=== PATIENT | male | born 1965 | race Caucasian/White ===

== ENCOUNTER 2018-12-23 13:51 | Emergency (ER) | payer BC ==
[~2018-12-23] VITALS: Ht 167.6 cm; Wt 70.3 kg
[2018-12-23 13:54] VITALS: BP_SYST 151
--- NOTE | 2018-12-23 14:21 | NUR ---
Patient to ER [place] [address] [facility] [place] [facility] for evaluation. Side rails up. Report given to Maryana DE DIOS.
--- NOTE | 2018-12-23 14:23 | NUR ---
Pt brought by self,A&Ox4, pt presents to ER with severe lower back pain radiating to R leg ,pt tripped and fell with landing on root ball, pt states he was seen at [facility] but was taking too long to see a doctor, pt respirations even and unlabored, no open wounds noted.
--- NOTE | 2018-12-23 14:53 | NUR ---
Shelly Robb [employer] MACHINE OPERATOR at bedside examining patient
[2018-12-23] MEDS: KETOROLAC TROMETHAMINE 60 MG/2 ML VIAL IM ONE (15:43)
--- NOTE | 2018-12-23 16:00 | NUR ---
Received fax from [facility] of requested medical records. Reviewed.
[2018-12-23 16:27] VITALS: BP_SYST 142
--- NOTE | 2018-12-23 16:28 | NUR ---
Patient given written and verbal discharge instructions and verbalizes understanding. ER MD discussed with patient the results and treatment provided. Patient in stable condition. ID arm band removed. Rx of Motrin,Flexeril,Tramadol,Lidocaine patch given. Patient educated on pain management and to follow up with PMD. Pain Scale 2/10 tolerable for pt. Opportunity for questions provided and answered. Medication side effect fact sheet provided.
[2018-12-23] MEDS ORDERED: DEXAMETHASONE SOD PHOSPHATE 10 MG/ML VIAL IM ONE (17:00)
== END 2018-12-23 16:27 | disposition home or self-care (01) ==
LOC: SED 13:51
DX: S39.012A Strain of muscle, fascia and tendon of lower back, initial encounter (principal); R03.0 Elevated blood-pressure reading, without diagnosis of hypertension; K21.9 Gastro-esophageal reflux disease without esophagitis; W01.0XXA Fall on same level from slipping, tripping and stumbling without subsequent striking against object, initial encounter; Y93.89 Activity, other specified; Y92.89 Other specified places as the place of occurrence of the external cause; Y99.8 Other external cause status
CPT/HCPCS: 96372; 99283; J1885

== ENCOUNTER 2019-05-26 07:11 | Emergency (ER) | payer SELFPAY ==
[~2019-05-26] VITALS: Ht 167.6 cm; Wt 72.6 kg
--- NOTE | 2019-05-26 07:13 | NUR ---
Patient to ER bed 1 to gown for evaluation. Side rails up. Triaged at bedside.
--- NOTE | 2019-05-26 07:15 | NUR ---
PATIENT CAME IN COMPLAINING OF NON RADIATING CHEST PAIN THAT STARTED ABOUT 0400 THIS MORNING WHEN HE WOKE UP. PATIENT COMPLAINING OF 4/10 PAIN. PATIENT UNABLE TO DESCRIBE IT. PATIENT STATES PAIN CONSTANT. PATIENT STATES HE HASNT TAKEN ANYTHING FOR PAIN. PATIENT COMPLAINING OF SOB. PATIENT DENIES NAUSEA AND VOMITING. PATIENT IS ALERT AND ORIENTED X4.
[2019-05-26 07:18] VITALS: BP_SYST 159
[2019-05-26] MEDS ORDERED: NACL 0.9% 1,000 ML IV ONE (07:19)
--- NOTE | 2019-05-26 07:25 | NUR ---
# 18 gauge angiocath placed to left AC. Use of asceptic technique. Opsite placed over site. Blood return noted. Blood for lab drawn from site. Flushed with 10 cc of normal saline. No evidence of infiltration noted. Patient tolerated well.
[2019-05-26] MEDS ORDERED: ASPIRIN 81 MG TAB.CHEW PO ONE (07:30)
[2019-05-26 07:37] LABS: BASOPHILS # (AUTO) 0.1 K/uL (0.0-0.2); BASOPHILS % (AUTO) 0.7 % (0.0-2.0); EOSINOPHILS # (AUTO) 0.2 K/uL (0.0-0.4); EOSINOPHILS % (AUTO) 2.3 % (0.0-4.0); HEMATOCRIT 43.5 % (36-54); HEMOGLOBIN 14.8 g/dL (14.0-18.0); LYMPHOCYTES # (AUTO) 1.6 K/uL (1.0-5.5); LYMPHOCYTES % (AUTO) 18.8 % (20.5-51.5); MEAN CORPUSCULAR HEMOGLOBIN 29 pg (27-31); MEAN CORPUSCULAR HGB CONC 34 % (32-36); MEAN CORPUSCULAR VOLUME 84 fL (79.0-98.0); MONOCYTES # (AUTO) 0.5 K/uL (0.0-1.0); MONOCYTES % (AUTO) 6.2 % (1.7-9.3); NEUTROPHILS # (AUTO) 5.9 K/uL (1.8-7.7); PLATELET COUNT (AUTO) 199 K/uL (130-430); RED BLOOD CELL COUNT(AUTO) 5.16 MIL/uL (4.2-6.2); RED CELL DISTRIBUTION WIDTH 14.2 % (9.0-15.0); WHITE BLOOD COUNT (AUTO) 8.3 K/uL (4.8-10.8)
--- NOTE | 2019-05-26 07:50 | NUR ---
PATIENT GETTING X RAY IN BED.
[2019-05-26 07:53] LABS: ANION GAP 11 (5-15); CHLORIDE 106 mmol/L (98-107); CREATININE 1.09 mg/dL (0.55-1.30); GLUCOSE 105 mg/dL (70-99); SODIUM SERUM 142 mmol/L (136-145); UREA NITROGEN, BLOOD 20 mg/dL (8-21)
[2019-05-26 08:02] LABS: ALANINE AMINOTRANSFERASE 44 U/L (12-78); ALBUMIN 3.3 g/dL (3.4-4.8); ASPARTATE AMINOTRANSFERASE 18 U/L (10-37); TOTAL BILIRUBIN 0.4 mg/dL (0.0-1.0)
[2019-05-26 08:03] LABS: GFR AFRICAN AMERICAN 92 mL/min (>90)
--- NOTE | 2019-05-26 08:07 | NUR ---
ER Dr. Bowman at bedside examining patient.
[2019-05-26 08:09] LABS: CALCIUM 8.6 mg/dL (8.4-11.0)
--- NOTE | 2019-05-26 08:25 | NUR ---
Patient given written and verbal discharge instructions and verbalizes understanding. ER MD discussed with patient the results and treatment provided. Patient in stable condition. ID arm band removed. IV catheter removed intact and dressing applied, no active bleeding. No Rx given. Patient educated on pain management and to follow up with PMD. Pain Scale 1/10 tolerable. Opportunity for questions provided and answered. Medication side effect fact sheet provided.
[2019-05-26 08:26] VITALS: BP_SYST 143
== END 2019-05-26 08:26 | disposition home or self-care (01) ==
LOC: SED 07:11
DX: R07.89 Other chest pain (principal); I10 Essential (primary) hypertension; K21.9 Gastro-esophageal reflux disease without esophagitis
CPT/HCPCS: 36415; 71045; 80053; 84484; 85025; 99284; J7030

== ENCOUNTER 2024-02-15 01:45 | Emergency (ER) | payer OTHER ==
[~2024-02-15] VITALS: Ht 167.6 cm; Wt 74.8 kg
[2024-02-15 01:53] VITALS: BP_SYST 172; PULSE 107; RESP 20; TEMP 96.5; O2SAT 99
[2024-02-15] MEDS ORDERED: iohexoL 350 mgI/mL, 100 ML INFUS..BTL IV ONE (02:24)
[2024-02-15 02:49] LABS: BASOPHILS # (AUTO) 0.1 K/uL (0.0-0.2); BASOPHILS % (AUTO) 2.1 % (0.0-2.0); EOSINOPHILS # (AUTO) 0.2 K/uL (0.0-0.4); EOSINOPHILS % (AUTO) 3.5 % (0.0-4.0); HEMATOCRIT 52.4 % (36-54); HEMOGLOBIN 17.4 g/dL (14.0-18.0); LYMPHOCYTES # (AUTO) 0.8 K/uL (1.0-5.5); LYMPHOCYTES % (AUTO) 11.8 % (20.5-51.5); MEAN CORPUSCULAR HEMOGLOBIN 28 pg (27-31); MEAN CORPUSCULAR HGB CONC 33 % (32-36); MEAN CORPUSCULAR VOLUME 84 fL (79.0-98.0); MONOCYTES # (AUTO) 0.4 K/uL (0.0-1.0); MONOCYTES % (AUTO) 6.7 % (1.7-9.3); NEUTROPHILS % (AUTO) 75.9 % (40.0-70.0); PLATELET COUNT (AUTO) 197 K/uL (130-430); RED BLOOD CELL COUNT(AUTO) 6.22 MIL/uL (4.2-6.2); RED CELL DISTRIBUTION WIDTH 14.5 % (9.0-15.0); WHITE BLOOD COUNT (AUTO) 6.5 K/uL (4.8-10.8)
[2024-02-15 02:57] LABS: PROTHROMBIN TIME 10.6 SECS (9.5-12.5)
[2024-02-15 03:05] VITALS: TEMP 97
[2024-02-15 03:06] LABS: ALANINE AMINOTRANSFERASE 46 U/L (12-78); ALBUMIN 3.5 g/dL (3.4-4.8); ANION GAP 12 (5-15); ASPARTATE AMINOTRANSFERASE 20 U/L (10-37); CALCIUM 9.1 mg/dL (8.4-11.0); CARBON DIOXIDE 24 mmol/L (23-29); CHLORIDE 103 mmol/L (98-107); CREATININE 1.21 mg/dL (0.55-1.30); GFR AFRICAN AMERICAN 80 mL/min (>90); GLUCOSE 112 mg/dL (74-106); POTASSIUM 3.9 mmol/L (3.5-5.1); SODIUM SERUM 139 mmol/L (136-145); TOTAL BILIRUBIN 0.4 mg/dL (0.0-1.0); TOTAL PROTEIN, SERUM 7.4 g/dL (6.4-8.3); UREA NITROGEN, BLOOD 21 mg/dL (8-21)
[2024-02-15 03:08] LABS: BILIRUBIN,DIRECT 0.1 mg/dL (0.0-0.3)
[2024-02-15 03:12] LABS: GFR NON AFRICAN-AMERICAN 66 mL/min (>90)
[2024-02-15] MEDS: MORPHINE 4 MG INJ. 4 MG/ML VIAL IVP ONE (04:00)
[2024-02-15] MEDS: KETOROLAC TROMETHAMINE 15 MG VIAL IVP ONE (05:34)
[2024-02-15] MEDS ORDERED: ACETAMINOPHEN 500 MG TABLET ONE (05:52)
[2024-02-15] MEDS: ACETAMINOPHEN 500 MG TABLET PO ONE (05:55)
[2024-02-15 06:36] VITALS: BP_SYST 125; PULSE 73; RESP 18; O2SAT 98
== END 2024-02-15 06:40 | disposition left against medical advice (07) ==
LOC: SED 01:45
DX: M79.605 Pain in left leg (principal); M79.602 Pain in left arm; R20.0 Anesthesia of skin; K21.9 Gastro-esophageal reflux disease without esophagitis
CPT/HCPCS: 99285; 70450; 96374; 71045; 96375; 80076; 80048; 83880; 85025; 85610; 85730; 84484; 36415; 93005; 71275; 74175; 70496; 70498; 72191; 82948; Q9967; J1885; J2270

== ENCOUNTER 2024-03-07 13:47 | Emergency (ER) | payer OTHER ==
[~2024-03-07] VITALS: Ht 167.6 cm; Wt 113.4 kg
[2024-03-07 13:52] VITALS: BP_SYST 138; PULSE 83; RESP 24; TEMP 98.5; O2SAT 98
[2024-03-07] MEDS ORDERED: iohexoL 350 mgI/mL, 100 ML INFUS..BTL IV ONE (13:57)
[2024-03-07] MEDS: NACL 0.9% 1,000 ML IV ONE (14:13)
[2024-03-07] MEDS: MORPHINE 4 MG INJ. 4 MG/ML VIAL IVP ONE (14:14)
[2024-03-07 14:25] LABS: BASOPHILS # (AUTO) 0.1 K/uL (0.0-0.2); BASOPHILS % (AUTO) 0.7 % (0.0-2.0); EOSINOPHILS # (AUTO) 0.1 K/uL (0.0-0.4); EOSINOPHILS % (AUTO) 1.3 % (0.0-4.0); HEMATOCRIT 51.9 % (36-54); HEMOGLOBIN 17.8 g/dL (14.0-18.0); LYMPHOCYTES # (AUTO) 1.8 K/uL (1.0-5.5); MEAN CORPUSCULAR HEMOGLOBIN 29 pg (27-31); MEAN CORPUSCULAR HGB CONC 34 % (32-36); MEAN CORPUSCULAR VOLUME 85 fL (79.0-98.0); MONOCYTES # (AUTO) 0.5 K/uL (0.0-1.0); MONOCYTES % (AUTO) 6.1 % (1.7-9.3); NEUTROPHILS # (AUTO) 5.5 K/uL (1.8-7.7); NEUTROPHILS % (AUTO) 68.9 % (40.0-70.0); PLATELET COUNT (AUTO) 198 K/uL (130-430); RED BLOOD CELL COUNT(AUTO) 6.12 MIL/uL (4.2-6.2); RED CELL DISTRIBUTION WIDTH 14.4 % (9.0-15.0); WHITE BLOOD COUNT (AUTO) 7.9 K/uL (4.8-10.8)
[2024-03-07] MEDS: MAG HYDROX/AL HYDROX/SIMETH 30 ML, DICYCLOMINE HCL 20 MG, LIDOCAINE VISCOUS 2% 15ML (PO... PO ONE (15:38)
[2024-03-07 15:44] LABS: ALANINE AMINOTRANSFERASE 35 U/L (12-78); ALBUMIN 2.8 g/dL (3.4-4.8); ANION GAP 4 (5-15); ASPARTATE AMINOTRANSFERASE 20 U/L (10-37); CALCIUM 7.6 mg/dL (8.4-11.0); CARBON DIOXIDE 27 mmol/L (23-29); CHLORIDE 106 mmol/L (98-107); CREATININE 1.15 mg/dL (0.55-1.30); GFR AFRICAN AMERICAN 85 mL/min (>90); GLUCOSE 107 mg/dL (74-106); POTASSIUM 3.7 mmol/L (3.5-5.1); SODIUM SERUM 137 mmol/L (136-145); TOTAL BILIRUBIN 0.4 mg/dL (0.0-1.0); TOTAL PROTEIN, SERUM 6.2 g/dL (6.4-8.3); UREA NITROGEN, BLOOD 23 mg/dL (8-21)
[2024-03-07 15:47] LABS: BILIRUBIN,DIRECT 0.1 mg/dL (0.0-0.3); LIPASE 29 U/L (16-77)
[2024-03-07 15:50] LABS: GFR NON AFRICAN-AMERICAN 70 mL/min (>90)
[2024-03-07] MEDS ORDERED: TRAM50TA2 PO (16:45)
[2024-03-07] MEDS ORDERED: OMEP40CA20 PO (16:45)
[2024-03-07] MEDS: KETOROLAC TROMETHAMINE 30 MG VIAL IVP ONE (16:51)
[2024-03-07 17:35] VITALS: BP_SYST 138; PULSE 81; RESP 18; TEMP 98; O2SAT 98
== END 2024-03-07 15:20 | disposition home or self-care (01) ==
LOC: SED 13:47
DX: K29.70 Gastritis, unspecified, without bleeding (principal); R10.13 Epigastric pain; R06.02 Shortness of breath; K21.9 Gastro-esophageal reflux disease without esophagitis; Z79.899 Other long term (current) drug therapy
CPT/HCPCS: 99285; 74175; 96374; 71045; 96361; 96375; 80076; 80048; 83690; 85025; 84484; 36415; 93005; 72191; 82948; Q9967; J1885; J2270; J7030; J2001

== ENCOUNTER 2024-05-18 07:23 | Emergency (ER) | payer OTHER ==
[~2024-05-18] VITALS: Ht 167.6 cm; Wt 90.7 kg
[~2024-05-18 07:23] MED LIST: OMEP40CA20 PO; TRAM50TA2 PO
[2024-05-18 07:30] VITALS: BP_SYST 152; PULSE 92; RESP 22; TEMP 98.5; O2SAT 97
[2024-05-18 08:21] LABS: BASOPHILS % (AUTO) 0.3 % (0.0-2.0); EOSINOPHILS # (AUTO) 0.2 K/uL (0.0-0.4); HEMOGLOBIN 17.3 g/dL (14.0-18.0); LYMPHOCYTES # (AUTO) 0.7 K/uL (1.0-5.5); MEAN CORPUSCULAR HEMOGLOBIN 29 pg (27-31); MONOCYTES # (AUTO) 0.6 K/uL (0.0-1.0); WHITE BLOOD COUNT (AUTO) 9.5 K/uL (4.8-10.8)
[2024-05-18 08:23] LABS: EOSINOPHILS % (AUTO) 1.7 % (0.0-4.0); HEMATOCRIT 51.8 % (36-54); LYMPHOCYTES % (AUTO) 7.6 % (20.5-51.5); MEAN CORPUSCULAR HGB CONC 33 % (32-36); MEAN CORPUSCULAR VOLUME 85 fL (79.0-98.0); MONOCYTES % (AUTO) 6.3 % (1.7-9.3); NEUTROPHILS % (AUTO) 84.1 % (40.0-70.0); PLATELET COUNT (AUTO) 192 K/uL (130-430); RED BLOOD CELL COUNT(AUTO) 6.07 MIL/uL (4.2-6.2); RED CELL DISTRIBUTION WIDTH 14.9 % (9.0-15.0)
[2024-05-18 08:36] LABS: PROTHROMBIN TIME 10.5 SECS (9.5-12.5)
[2024-05-18 09:01] LABS: ALANINE AMINOTRANSFERASE 46 U/L (12-78); ALBUMIN 3.6 g/dL (3.4-4.8); ANION GAP 11 (5-15); ASPARTATE AMINOTRANSFERASE 25 U/L (10-37); BILIRUBIN,DIRECT 0.1 mg/dL (0.0-0.3); CALCIUM 8.5 mg/dL (8.4-11.0); CARBON DIOXIDE 24 mmol/L (23-29); CHLORIDE 102 mmol/L (98-107); CREATINE KINASE, TOTAL 175 U/L (39-308); CREATININE 1.16 mg/dL (0.55-1.30); FREE T4 (FREE THYROXINE) 0.8 ng/dL (0.6-1.6); GFR AFRICAN AMERICAN 84 mL/min (>90); GFR NON AFRICAN-AMERICAN 69 mL/min (>90); GLUCOSE 96 mg/dL (74-106); POTASSIUM 4.1 mmol/L (3.5-5.1); SODIUM SERUM 137 mmol/L (136-145); THYROID STIMULATING HORMONE 1.13 uIu/mL (0.34-4.82); TOTAL BILIRUBIN 0.5 mg/dL (0.0-1.0); TOTAL PROTEIN, SERUM 7.4 g/dL (6.4-8.3); UREA NITROGEN, BLOOD 18 mg/dL (8-21)
[2024-05-18 09:01] LABS: BILIRUBIN,URINE NEGATIVE (NEGATIVE); CLARITY/URINE CLEAR (CLEAR); COLOR,URINE YELLOW (YELLOW); GLUCOSE,URINE NEGATIVE (NEGATIVE); KETONES,URINE NEGATIVE (NEGATIVE); LEUKOCYTE ESTERASE ,URINE NEGATIVE (NEGATIVE); NITRITE, URINE NEGATIVE (NEGATIVE); PROTEIN URINE NEGATIVE (NEGATIVE); UROBILINOGEN,URINE 0.2 (0.2-1.0)
[2024-05-18 09:03] LABS: BLOOD, URINE TRACE (NEGATIVE)
[2024-05-18 09:15] LABS: BACTERIA,URINE None Seen /HPF (None Seen); CALCIUM OXALATE CRYSTALS,UR None Seen /HPF (None Seen); CALCIUM PHOSPHATE CRYSTALS,UR None Seen /HPF (None Seen); COARSE GRANULAR CASTS,URINE None Seen /LPF (None Seen); FINE GRANULAR CASTS,URINE None Seen /LPF (None Seen); HYALINE CASTS, URINE None Seen /LPF (None Seen); MUCUS,URINE None Seen /LPF (None Seen); OTHER CASTS, URINE None Seen /LPF (None Seen); OTHER CRYSTALS,URINE None Seen /HPF (None Seen); RBC,URINE 0-3 /HPF (0-3); TRICHOMONAS,URINE None Seen /HPF (None Seen); TRIPLE PHOSPHATE CRYSTAL,UR None Seen /HPF (None Seen); URIC ACID CRYSTALS,URINE None Seen /HPF (None Seen); URINE AMORPHOUS PHOSPHATES None Seen /HPF (None Seen); URINE AMORPHOUS URATE None Seen /HPF (None Seen); WAXY CASTS,URINE None Seen /LPF (None Seen); WBC,URINE NONE SEEN /HPF (0-3); YEAST,URINE None Seen /HPF (None Seen)
[2024-05-18 09:51] LABS: ACETONE, SERUM NEGATIVE (NEGATIVE)
[2024-05-18 10:51] VITALS: BP_SYST 116; PULSE 79; RESP 20; TEMP 98.5; O2SAT 95
== END 2024-05-18 10:49 | disposition home or self-care (01) ==
LOC: SED 07:23
DX: R53.1 Weakness (principal); R51.9 Headache, unspecified; K21.9 Gastro-esophageal reflux disease without esophagitis; Z79.899 Other long term (current) drug therapy
CPT/HCPCS: 36415; 70450-TC; 71045; 80048; 80076; 81000; 81001; 81015; 82009; 82550; 83605; 84439; 84443; 84484; 85025; 85610; 85730; 93005; 99285